=== PATIENT | female | born 1980 | race Caucasian/White ===

== ENCOUNTER 2016-10-27 08:06 | Emergency (ER) | payer MEDICAID ==
[2016-10-27 08:14] VITALS: BP 117/76; PULSE 114; RESP 20; TEMP 98.3; O2SAT 98; BMI 25.1
[2016-10-27] MEDS ORDERED: guaiFENesin 100 mg/5 ml Syrup UD ONE (08:26)
[2016-10-27] MEDS ORDERED: guaiFENesin 200 mg/10 ml Syrup UD PO STA (08:26)
--- NOTE | 2016-10-27 08:29 | ED PDOC ---
HPI: CCC, URI, Sore Throat Time Seen by Provider: 10/27/16 08:19 Chief Complaint (Nursing): Flu-like Symptoms Chief Complaint (Provider): cough, congestion, headache malaise History Per: Patient History/Exam Limitations: no limitations Onset/Duration Of Symptoms: Days (4), Gradual Current Symptoms Are (Timing): Still Present Location Of Pain: Diffuse Myalgias, Headache, Other (cough) Sick Contacts (Context): Family Member(s) (children have strep throat) Associated Symptoms: Cough, Sputum, Myalgias, Nasal Congestion. denies: Nausea , Vomiting, Diarrhea Severity: Moderate Additional Complaint(s): 36yo female arrives w flu like symptoms including fever, body aches, cough w phlegm, headache and congestion. Denies abd pain, neck pain or photophobia. Taking nyquil without much improvement. Kids sick w strep throat. She denies significant sore throat. Past Medical History Reviewed: Historical Data, Nursing Documentation, Vital Signs Vital Signs: Last Vital Signs Temp 98.3 F 10/27/16 08:13 Pulse 114 H 10/27/16 08:13 Resp 20 10/27/16 08:13 BP 117/76 10/27/16 08:13 Pulse Ox 98 10/27/16 08:30 - Medical History PMH: Asthma, Migraine Denies: HIV, Chronic Kidney Disease - Surgical History Surgical History: Tonsillectomy - Family History Family History: States: Stroke (grandmother) - Living Arrangements Living Arrangements: With Family - Social History Current smoker - smoking cessation education provided: No - Immunization History Hx Tetanus Toxoid Vaccination: No Hx Influenza Vaccination: No Hx Pneumococcal Vaccination: No - Home Medications Home Medications: Ambulatory Orders Medication Instructions Recorded Aspirin [Adult Low Dose Aspirin EC] 81 mg PO DAILY #30 tablet. 10/15/15 Atorvastatin [Lipitor] 10 mg PO HS #30 tab 10/15/15 Guaifenesin [Mucinex ER] 600 mg PO Q12 PRN #14 ter 10/27/16 Ibuprofen [Motrin Tab] 600 mg PO Q6 PRN #15 tab 10/27/16 - Allergies Allergies/Adverse Reactions: Allergies Allergy/AdvReac Type Severity Reaction Status Date / Time No Known Allergies Allergy Verified 10/27/16 08:18 Review of Systems ROS Statement: Except As Marked, All Systems Reviewed And Found Negative Constitutional: Positive for: Fever, Malaise. Negative for: Weight loss Eyes: Negative for: Vision Change, Eyelid Inflammation ENT: Positive for: Nose Discharge, Throat Pain (mild). Negative for: Ear Discharge, Mouth Swelling, Throat Swelling Cardiovascular: Negative for: Chest Pain, Palpitations Respiratory: Positive for: Cough, Shortness of Breath (mild), Pleuritic Pain, Sputum. Negative for: Wheezing Gastrointestinal: Negative for: Nausea, Vomiting, Abdominal Pain Genitourinary Female: Negative for: Dysuria, Frequency Musculoskeletal: Positive for: Other (+body aches). Negative for: Neck Pain, Shoulder Pain, Arm Pain Skin: Negative for: Rash, Lesions, Jaundice Neurological: Positive for: Headache. Negative for: Weakness, Numbness, Seizures, Dizziness Psych: Negative for: Depression Physical Exam - Reviewed Nursing Documentation Reviewed: Yes Vital Signs Reviewed: Yes - Physical Exam Appears: Positive for: Well, Non-toxic, No Acute Distress Head Exam: Positive for: ATRAUMATIC, NORMAL INSPECTION, NORMOCEPHALIC Skin: Positive for: Normal Color, Warm, DRY Eye Exam: Positive for: Normal appearance, EOMI, PERRL. Negative for: Periorbital swelling, Conjunctival injection ENT: Positive for: Pharyngeal Erythema (mild), Other (+rhinohrrea/ nasal congestion) Neck: Positive for: Normal, Painless ROM Cardiovascular/Chest: Positive for: Regular Rate, Rhythm Respiratory: Positive for: Normal Breath Sounds. Negative for: Decreased Breath Sounds, Wheezing, Respiratory Distress Back: Positive for: Normal Inspection Extremity: Positive for: Normal ROM Neurologic/Psych: Positive for: Alert, Oriented, Gait (stable). Negative for: Motor/Sensory Deficits - ECG O2 Sat by Pulse Oximetry: 98 Medical Decision Making Medical Decision Making: check flu swab, which returned + Start tamiflu, supportive care, avoid contact others x7d Disposition - Clinical Impression Clinical Impression: Influenza - Patient ED Disposition Is Patient to be Admitted: No Counseled Patient/Family Regarding: Studies Performed, Diagnosis, Need For Followup - Disposition Referrals: [facility] [Outside] Disposition: Routine/Home Disposition Time: 09:05 Condition: STABLE Additional Instructions: Drink plenty of fluids, get plenty of rest. Avoid close contact with others. Your symptoms are contagious for about one week from onset. Prescriptions: Ibuprofen [Motrin Tab] 600 mg PO Q6 PRN #15 tab PRN Reason: Pain, Moderate (4-7) Guaifenesin [Mucinex ER] 600 mg PO Q12 PRN #14 ter PRN Reason: Cough Instructions: Influenza (ED) Forms: [facility] ED School/Work Excuse
== END 2016-10-27 09:20 | disposition home or self-care (01) ==
LOC: H.ER 08:06
DX: R05 Cough (principal); R51 Headache

== ENCOUNTER 2017-07-07 09:17 | Emergency (ER) | payer MEDICAID ==
[2017-07-07 09:17] VITALS: BMI 25.1
[2017-07-07 09:27] VITALS: BP 119/68; PULSE 82; RESP 20; TEMP 97.8; O2SAT 99
[2017-07-07 10:24] LABS: RBC URINE 443 /hpf (0-3); URINE BILIRUBIN NEGATIVE (NEGATIVE); URINE BLOOD LARGE (NEGATIVE); URINE COLOR YELLOW (YELLOW); URINE GLUCOSE (UA) NEG (Normal); URINE KETONE NEGATIVE (NEGATIVE); URINE LEUKOCYTE ESTERASE LARGE Leu/uL (Negative); URINE PROTEIN 30 mg/dL (NEGATIVE); URINE UROBILINOGEN 0.2-1.0 mg/dL (0.2-1.0); WBC URINE 448 /hpf (0-5)
[2017-07-07] MEDS ORDERED: Amoxicillin-Clav 875-125 mg Tab PO STA (10:33)
--- NOTE | 2017-07-07 10:41 | ED PDOC ---
HPI: Female Pain Time Seen by Provider: 07/07/17 09:31 Chief Complaint (Nursing): Female Genitourinary History Per: Patient History/Exam Limitations: no limitations Onset/Duration Of Symptoms: Gradual (today) Severity: Mild Quality Of Discomfort: Dull Associated Symptoms: Urinary Symptoms. denies: Fever, Chills, Nausea, Vomiting , Diarrhea, Loss Of Appetite, Back Pain, Chest Pain, Constipation Alleviating Factors: None Additional History Per: Patient Additional Complaint(s): pt ambulates into ED with c/o dysuria and frequency since yesterday. Patient denies fevers. Pt denies medicating for pain at home. Past Medical History Reviewed: Historical Data, Nursing Documentation, Vital Signs Vital Signs: Last Vital Signs Temp 97.8 F 07/07/17 09:26 Pulse 82 07/07/17 09:26 Resp 20 07/07/17 09:26 BP 119/68 07/07/17 09:26 Pulse Ox 99 07/07/17 09:26 - Medical History PMH: Asthma, Migraine Denies: HIV, Chronic Kidney Disease - Surgical History Surgical History: Tonsillectomy - Family History Family History: States: Stroke (grandmother) - Living Arrangements Living Arrangements: With Family - Social History Current smoker - smoking cessation education provided: No - Immunization History Hx Tetanus Toxoid Vaccination: No Hx Influenza Vaccination: No Hx Pneumococcal Vaccination: No - Home Medications Home Medications: Ambulatory Orders Medication Instructions Recorded Aspirin [Adult Low Dose Aspirin EC] 81 mg PO DAILY #30 tablet. 10/15/15 Atorvastatin [Lipitor] 10 mg PO HS #30 tab 10/15/15 Guaifenesin [Mucinex ER] 600 mg PO Q12 PRN #14 ter 10/27/16 Ibuprofen [Motrin Tab] 600 mg PO Q6 PRN #15 tab 10/27/16 Amoxicillin/Clavulanate [Augmentin 1 tab PO BID 10 Days tab 07/07/17 875 MG-125 MG] Phenazopyridine HCl [Pyridium] 100 mg PO TID #14 tablet 07/07/17 - Allergies Allergies/Adverse Reactions: Allergies Allergy/AdvReac Type Severity Reaction Status Date / Time No Known Allergies Allergy Verified 10/27/16 08:18 Review of Systems ROS Statement: Except As Marked, All Systems Reviewed And Found Negative Constitutional: Negative for: Fever, Chills Cardiovascular: Negative for: Chest Pain, Palpitations Respiratory: Negative for: Cough, Shortness of Breath Gastrointestinal: Negative for: Nausea, Vomiting, Abdominal Pain, Diarrhea Genitourinary Female: Positive for: Dysuria, Frequency. Negative for: Vaginal Discharge, Vaginal Bleeding, Pelvic Pain Neurological: Negative for: Weakness, Numbness Physical Exam - Reviewed Nursing Documentation Reviewed: Yes Vital Signs Reviewed: Yes - Physical Exam Appears: Positive for: Uncomfortable Head Exam: Positive for: ATRAUMATIC, NORMAL INSPECTION, NORMOCEPHALIC Eye Exam: Positive for: Normal appearance, EOMI, PERRL Neck: Positive for: Normal, Painless ROM, Supple Cardiovascular/Chest: Positive for: Regular Rate, Rhythm, Chest Non Tender. Negative for: Edema, Gallop, Murmur, Bradycardia, Tachycardia, Irregularly Irregular Respiratory: Positive for: Normal Breath Sounds. Negative for: Decreased Breath Sounds, Accessory Muscle Use, Crackles, Rales, Rhonchi, Stridor, Wheezing , Respiratory Distress Back: Positive for: Normal Inspection. Negative for: L CVA Tenderness, R CVA Tenderness Extremity: Positive for: Normal ROM. Negative for: Tenderness, Pedal Edema, Calf Tenderness, Deformity Neurologic/Psych: Positive for: Alert, naturopathic physician II-XII, Oriented. Negative for: Motor/Sensory Deficits - ECG O2 Sat by Pulse Oximetry: 99 Pulse Ox Interpretation: Normal - Progress ED Course And Treament: advise antibiotics for uti. advise close f/u with pmd. Re-evaluation Time: 10:41 Condition: Improved Disposition - Clinical Impression Clinical Impression: UTI (urinary tract infection) - Patient ED Disposition Is Patient to be Admitted: No Counseled Patient/Family Regarding: Studies Performed, Diagnosis, Need For Followup - Disposition Referrals: [facility] [Outside] (2 to 3 days) Disposition: Routine/Home Disposition Time: 10:00 Condition: GOOD Prescriptions: Amoxicillin/Clavulanate [Augmentin 875 MG-125 MG] 1 tab PO BID 10 Days tab Phenazopyridine HCl [Pyridium] 100 mg PO TID #14 tablet Instructions: Urinary Tract Infection in Women (ED), Phenazopyridine (By mouth)
[2017-07-07] MEDS ORDERED: Amoxicillin-Clav 875-125 mg Tab PO ONE (10:46)
== END 2017-07-07 10:59 | disposition home or self-care (01) ==
LOC: H.ER 09:17
DX: N39.0 Urinary tract infection, site not specified (principal); J45.909 Unspecified asthma, uncomplicated; Z79.82 Long term (current) use of aspirin

== ENCOUNTER 2018-08-07 08:21 | Emergency (ER) | payer MEDICAID ==
[2018-08-07 08:22] VITALS: BMI 25.1
--- NOTE | 2018-08-07 09:58 | ED PDOC ---
HPI: General Adult Time Seen by Provider: 08/07/18 09:04 Chief Complaint (Nursing): ENT Problem Chief Complaint (Provider): ENT Problem History Per: Patient History/Exam Limitations: no limitations Additional Complaint(s): 37 y/o female presents to ER for evaluation of left ear pain associated with slight headache for a few days. Patient reports feeling a pimple that was itchy causing pain but grew and grew and now feels numb inside ear. no discharge from ear. PMD: Chloe Borden Past Medical History Reviewed: Historical Data, Nursing Documentation, Vital Signs Vital Signs: Last Vital Signs Temp 98.1 F 08/07/18 08:24 Pulse 80 08/07/18 08:24 Resp 20 08/07/18 08:24 BP 117/62 08/07/18 08:24 Pulse Ox 97 08/07/18 08:24 - Medical History PMH: Asthma, Migraine Denies: HIV, Chronic Kidney Disease - Surgical History Surgical History: Tonsillectomy Other surgeries: D&C - Family History Family History: States: Stroke (grandmother) - Social History Current smoker - smoking cessation education provided: No Alcohol: None Drugs: Denies - Immunization History Hx Tetanus Toxoid Vaccination: No Hx Influenza Vaccination: No Hx Pneumococcal Vaccination: No - Home Medications Home Medications: Ambulatory Orders Medication Instructions Recorded Aspirin [Adult Low Dose Aspirin EC] 81 mg PO DAILY #30 tablet. 10/15/15 Atorvastatin [Lipitor] 10 mg PO HS #30 tab 10/15/15 Guaifenesin [Mucinex ER] 600 mg PO Q12 PRN #14 ter 10/27/16 RX: Ibuprofen [Motrin Tab] 600 mg PO Q6 PRN #15 tab 10/27/16 Amoxicillin/Clavulanate [Augmentin 1 tab PO BID 10 Days tab 07/07/17 875 MG-125 MG] Phenazopyridine HCl [Pyridium] 100 mg PO TID #14 tablet 07/07/17 Amoxicillin/Clavulanate [Augmentin 1 tab PO BID #20 tab 08/07/18 875 MG-125 MG] Ciprofloxacin/Dexamethasone 1 drop OS BID #1 bottle 08/07/18 [Ciprodex Otic] Methylprednisolone [Medrol Dose 4 mg PO DAILY #21 mg 08/07/18 Pack (21 tabs)] - Allergies Allergies/Adverse Reactions: Allergies Allergy/AdvReac Type Severity Reaction Status Date / Time No Known Allergies Allergy Verified 10/27/16 08:18 Review of Systems ROS Statement: Except As Marked, All Systems Reviewed And Found Negative ENT: Positive for: Ear Pain (Left with pimple) Physical Exam - Reviewed Nursing Documentation Reviewed: Yes Vital Signs Reviewed: Yes - Physical Exam Appears: Positive for: Non-toxic, No Acute Distress Head Exam: Positive for: ATRAUMATIC, NORMOCEPHALIC Skin: Positive for: Normal Color ENT: Positive for: Other (External left ear is intact, coming out bulging, fleshy charles colored, nontender mass. No discharge of the mass) Neck: Positive for: Normal, Painless ROM, Supple Neurologic/Psych: Positive for: Alert, Oriented (x3) - Laboratory Results Result Diagrams: 08/07/18 10:11 08/07/18 10:11 - ECG O2 Sat by Pulse Oximetry: 97 (RA) Pulse Ox Interpretation: Normal Medical Decision Making Medical Decision Making: Time: 936 Initial Plan: left ear fleshy mass in canal --CT Maxillofacial --CMP --CBC [address] FINDINGS: RIGHT TEMPORAL BONE: RIGHT MIDDLE EAR: Normal. RIGHT INNER EAR: Cochlea: Normal. 300 Semicircular canals: Normal. RIGHT MASTOID AIR CELLS: Normal. RIGHT INTERNAL AUDITORY CANAL: Normal. RIGHT EXTERNAL AUDITORY CANAL: Normal. RIGHT VESTIBULAR AND COCHLEAR AQUEDUCT: Normal. OTHER FINDINGS: None. LEFT TEMPORAL BONE: LEFT MIDDLE EAR: Normal. LEFT INNER EAR: Cochlea: Normal. Semicircular canals: Normal. LEFT MASTOID AIR CELLS: Normal. LEFT INTERNAL AUDITORY CANAL: Normal. LEFT EXTERNAL AUDITORY CANAL: Normal. LEFT VESTIBULAR AND COCHLEAR AQUEDUCTS: Normal. OTHER FINDINGS: No evidence of abnormal enhancement or mass. IMPRESSION: Unremarkable contrast enhanced CT of the temporal bones. Please note an MRI of the internal auditory canals without and with intravenous contrast is examination of choice for assessment of sensorineural hearing loss and tinnitus. [address] with to Dr. Herrera, ENT construction secretary, states could be inflammatory process, states patient is stable for discharge home with antibiotics ,ear drop and Medrol dosage. and follow up with him in office 1614 Upon discharge, patient informed the provider that she has lupus and asked whether the inflammation is related to it or not. Explained to patient that her symptoms might be related to her lupus. and discussed outpatient plan with ENT. pt agreeable. Scribe Attestation: Documented by Violetta Johnson, acting as a scribe for Suzette Mayorga MD. Provider Scribe Attestation: All medical record entries made by the Scribe were at my direction and personally dictated by me. I have reviewed the chart and agree that the record accurately reflects my personal performance of the history, physical exam, medical decision making, and the department course for this patient. I have also personally directed, reviewed, and agree with the discharge instructions and disposition. Disposition - Clinical Impression Clinical Impression: Mass of left ear canal - Patient ED Disposition Is Patient to be Admitted: No Counseled Patient/Family Regarding: Studies Performed, Diagnosis, Need For Followup - Disposition Referrals: [facility] [Outside] Trey Hanna MD [Staff Provider] - Disposition: Routine/Home Disposition Time: 16:14 Condition: IMPROVED Additional Instructions: follow up with Dr Hanna in one week as well as your accident examiner return to ED with any worsening or concerning symptoms Prescriptions: Amoxicillin/Clavulanate [Augmentin 875 MG-125 MG] 1 tab PO BID #20 tab Ciprofloxacin/Dexamethasone [Ciprodex Otic] 1 drop OS BID #1 bottle Methylprednisolone [Medrol Dose Pack (21 tabs)] 4 mg PO DAILY #21 mg Forms: [facility] ([place]), [facility] ED School/Work Excuse
[2018-08-07 10:28] LABS: BASO % 0.7 % (0.0-2.0); EOS # 0.1 K/uL (0.0-0.7); EOS % 1.9 % (0.0-4.0); HEMOGLOBIN 11.6 g/dL (12.0-16.0); LYMPH # 1.4 K/uL (1.0-4.3); LYMPH % 26.2 % (20.0-40.0); MEAN CORPUSCULAR HEMOGLOBIN 24.9 pg (27.0-31.0); MEAN CORPUSCULAR HGB CONC 31.9 g/dL (33.0-37.0); MONO # 0.5 K/uL (0.0-0.8); MONO % 9.6 % (0.0-10.0); NEUT # 3.2 K/uL (1.8-7.0); NEUT % 61.6 % (50.0-75.0); NRBC % 0.1 % (0.0-0.0); RBC 4.68 Mil/uL (3.80-5.20); RED CELL DISTRIBUTION WIDTH 16.6 % (11.5-14.5); WHITE BLOOD COUNT 5.2 K/uL (4.8-10.8)
[2018-08-07 10:41] LABS: ALB/GLOB RATIO 1.1 (1.0-2.1); ALBUMIN 4.1 g/dL (3.5-5.0); ALT/SGPT 34 U/L (9-52); AST/SGOT 35 U/L (14-36); CALCIUM 9.4 mg/dL (8.4-10.2); GFR NON-AFRICAN AMERICAN > 60
[2018-08-07 10:56] LABS: BLOOD UREA NITROGEN 11 mg/dl (7-17)
[2018-08-07] MEDS ORDERED: Iohexol 300 100 ML IJ ONE (13:28)
[2018-08-07] MEDS ORDERED: Sodium Chloride 0.9% 50 ML IV ONE (13:28)
--- NOTE | 2018-08-07 15:19 | CT ---
Date of service: 08/07/2018 PROCEDURE: CT OF THE TEMPORAL BONES WITH CONTRAST HISTORY: assess inside ear COMPARISON: None available. TECHNIQUE: High resolution axial images of the temporal bones were obtained. Coronal and sagittal reformats were generated. Contrast dose: 95 mL Omnipaque Radiation dose: Total exam DLP = 560.17 mGy-cm. This CT exam was performed using one or more of the following dose reduction techniques: Automated exposure control, adjustment of the mA and/or kV according to patient size, and/or use of iterative reconstruction technique. FINDINGS: RIGHT TEMPORAL BONE: RIGHT MIDDLE EAR: Normal. RIGHT INNER EAR: Cochlea: Normal. 300 Semicircular canals: Normal. RIGHT MASTOID AIR CELLS: Normal. RIGHT INTERNAL AUDITORY CANAL: Normal. RIGHT EXTERNAL AUDITORY CANAL: Normal. RIGHT VESTIBULAR AND COCHLEAR AQUEDUCT: Normal. OTHER FINDINGS: None. LEFT TEMPORAL BONE: LEFT MIDDLE EAR: Normal. LEFT INNER EAR: Cochlea: Normal. Semicircular canals: Normal. LEFT MASTOID AIR CELLS: Normal. LEFT INTERNAL AUDITORY CANAL: Normal. LEFT EXTERNAL AUDITORY CANAL: Normal. LEFT VESTIBULAR AND COCHLEAR AQUEDUCTS: Normal. OTHER FINDINGS: No evidence of abnormal enhancement or mass. IMPRESSION: Unremarkable contrast enhanced CT of the temporal bones. Please note an MRI of the internal auditory canals without and with intravenous contrast is examination of choice for assessment of sensorineural hearing loss and tinnitus.
[2018-08-07 16:23] VITALS: BP 114/73; PULSE 89; RESP 18; TEMP 98.6
[2018-08-08 13:08] VITALS: O2SAT 97
== END 2018-08-07 16:38 | disposition home or self-care (01) ==
LOC: H.ER 08:21
DX: H61.892 Other specified disorders of left external ear (principal); R51 Headache
CPT/HCPCS: 70481; 80053; 81025; 85025; 99283; Q9967